=== PATIENT | male | born 1960 | race Caucasian/White ===

== ENCOUNTER 2023-02-08 09:24 | Emergency (ER) | payer BC ==
--- NOTE | 2023-02-08 09:29 | ERPHSYRPT ---
- History of Present Illness Time Seen by Provider: 02/08/23 09:29 Source: patient, family Exam Limitations: no limitations Physician History: This is a 62-year-old white male patient has a history of hypertension and some erectile dysfunction symptoms and presents with back pain which radiates into his buttocks, bilateral hips. He does not have urinary incontinence. He has no bowel incontinence. He has no constipation. He does not feel numbness down into his feet but he does have some numbness into the buttock and hip areas there is mild but started this past Tuesday prior to arrival to this emergency department visit. Occurred: days ago (2) Quality: intermittent, burning, other (Numbness) Severity of Pain-Max: mild Severity of Pain-Current: mild (Moderate to moderate) Lower Extremities Pain: hip: bilateral (And bilateral buttocks) Modifying Factors: Improves With: nothing Associated Symptoms: none Allergies/Adverse Reactions: meperidine [From Demerol] Allergy (Verified 02/08/23 09:38) Home Medications: Carvedilol 12.5 mg [Coreg 12.5 mg] 12.5 mg PO BID 02/08/23 [History] Levocetirizine Dihydrochloride 5 mg PO DAILY 02/08/23 [History] lisinopriL [Zestril] 30 mg PO DAILY 02/08/23 [History] tadalafiL [Tadalafil] 10 mg PO UD 02/08/23 [History] Travel Risk - International Travel Have you traveled outside of the country in past 3 weeks: No - Coronavirus Screening Are you exhibiting any of the following symptoms?: No Close contact with a COVID-19 positive Pt in past 14-21 Days: No - Review of Systems Constitutional: No Symptoms Eyes: No Symptoms Ears, Nose, & Throat: No Symptoms Respiratory: No Symptoms Cardiac: No Symptoms Abdominal/Gastrointestinal: No Symptoms Genitourinary Symptoms: No Symptoms Musculoskeletal: Back Pain (Lumbar spine pain), Joint Pain (Bilateral hip pain and numbness) Skin: No Symptoms Neurological: No Symptoms Psychological: No Symptoms Endocrine: No Symptoms Hematologic/Lymphatic: No Symptoms Immunological/Allergic: No Symptoms All Other Systems: Reviewed and Negative - Past Medical History Pertinent Past Medical History: Yes - Past Surgical History Past Surgical History: Yes - Nursing Vital Signs Nursing Vital Signs: Initial Vital Signs Temperature 98.1 F 02/08/23 09:29 Pulse Rate 63 02/08/23 09:29 Blood Pressure 158/98 02/08/23 09:29 O2 Sat by Pulse Oximetry 99 02/08/23 09:29 Pain Scale Pain Intensity 7 - Physical Exam General Appearance: no apparent distress, alert, anxiety Eyes, Ears, Nose, Throat Exam: normal ENT inspection, moist mucous membranes Neck Exam: normal inspection, non-tender, supple, full range of motion Cardiovascular/Respiratory Exam: chest non-tender, no respiratory distress Gastrointestinal/Abdominal Exam: non-tender Back Exam: normal inspection, normal range of motion, vertebral tenderness (Lumbar spine level), muscle spasm (Lumbar spine level), No CVA tenderness Hips Exam: bilateral: normal inspection, normal range of motion, no evidence of injury, pain (Described as a burning numbness) Legs Exam: bilateral leg: normal inspection, normal range of motion, no evidence of injury, pain (Described as intermittent upper posterior and lateral burning numbness) Knees Exam: bilateral knee: non-tender, normal inspection, normal range of motion, no evidence of injury Ankle Exam: bilateral ankle: non-tender, normal inspection, normal range of motion, no evidence of injury Foot Exam: bilateral foot: non-tender, normal inspection, normal range of motion, no evidence of injury, other (Bilateral palpable pedal pulses) Neuro/Tendon Exam: normal sensation, normal motor functions, normal tendon functions, responds to pain, no evidence tendon injury, motor deficit Mental Status Exam: alert, oriented x 3, cooperative Skin Exam: normal color, warm, dry SpO2 Interpretation: normal O2 Delivery: Room Air - Course Nursing assessment & vital signs reviewed: Yes Ordered Tests: Active Orders 24 hr Category Date Time Status LUMBAR SPINE W/O [CT] Stat Exams 02/08/23 09:45 Completed - Progress Progress: improved, pain not gone completely, re-examined Progress Note: 02/08/23 09:56 This patient's medical issue is 1 of moderate complexity. The level of complexity in the work-up performed based on review of the patient's past medical history, review of the patient's medication list, review the patient's drug allergy list, history of present illness and physical findings on examination. The work-up in this patient includes a CT of the lumbar spine. 02/08/23 11:03 CT scan of the lumbar spine shows minimal multilevel anterior endplate spurring. No acute compression fracture or subluxation. There are scattered arteriosclerotic disease present. Counseled pt/family regarding: diagnosis, need for follow-up, rad results Medical Desision Making - Diagnostic Testing Diagnostic test were ordered, analyzed, and reviewed by me: Yes Radiological Interpretation: Reviewed by me, Teleradiologist Report - Risk of complications The pt has a mod risk of morbidity or mortality based on: Need for prescription drug management - Departure Departure Disposition: Home Clinical Impression: Back pain, Bilateral leg numbness, Arteriosclerotic vascular disease Condition: Stable Critical Care Time: No Additional Instructions: Take your medication as prescribed. Call your primary care provider today to make arrangements for follow-up appointment for further evaluation and management of your symptoms. Discussed with them your back pain as well as numbness in your legs. Obtain referral to a back specialist and vascular specialist if indicated. Prescriptions: Prednisone 10 mg [Deltasone 10 mg] 10 mg PO TID #12 tablet Orphenadrine Citrate 100 mg [Norflex 100 MG Tablet] 100 mg PO BID #10 tab
[2023-02-08 09:38] VITALS: TEMP 98.1
--- NOTE | 2023-02-08 10:22 | XRAY ---
Indication: Low back and bilateral lower extremity pain 2 days. Multiple contiguous axial images obtained through the lumbar spine. Sagittal and coronal reformatted images obtained. Comparison: None Minimal multilevel thoracolumbar anterior endplate spurring. Axial images negative for acute fracture, suspicious bony lesions, or spinal canal stenosis. Facets are symmetric. Sagittal and coronal reformatted images demonstrates normal lumbar alignment with disc spaces maintained. No acute compression fracture or subluxation. Visualized noncontrasted soft tissues demonstrates mild scattered aortoiliac calcifications without AAA. Impression: Minimal multilevel anterior endplate spurring and scattered arteriosclerotic disease. Remaining CT lumbar spine is negative.
[2023-02-08 11:09] VITALS: PULSE 70; O2SAT 100
[2023-02-08 11:44] VITALS: BP 177/109
== END 2023-02-08 11:48 | disposition home or self-care (01) ==
LOC: ED 09:24
DX: M54.50 Low back pain, unspecified (principal); R20.2 Paresthesia of skin; I70.90 Unspecified atherosclerosis; I10 Essential (primary) hypertension; Z79.52 Long term (current) use of systemic steroids; Z79.899 Other long term (current) drug therapy
CPT/HCPCS: 72131; 99283